=== PATIENT | male | born 1960 | race Caucasian/White ===

== ENCOUNTER 2017-05-22 17:47 | Emergency (ER) | payer OTHER ==
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
[2017-05-22 18:37] VITALS: BP 151/89
== END 2017-05-22 18:30 | disposition home or self-care (01) ==
LOC: ED 17:47
DX: Z04.1 Encounter for examination and observation following transport accident (principal)
CPT/HCPCS: 99283